=== PATIENT | female | born 1965 | race Caucasian/White ===

== ENCOUNTER 2018-08-14 09:48 | Observation (INO) | payer BC, MEDICARE ==
[2018-08-14 11:20] LABS: #Basophils 0.1 thou/uL (0.0-0.2); #Eosinphils 0.2 thou/uL (0.0-0.7); #Lymphocytes 2.1 thou/uL (1.20-3.40); #Monocytes 0.4 thou/uL (0.11-0.59); #Neutrophils 3.5 thou/uL (1.40-6.50); %Eosinophils 2.4 % (0.0-10.0); %Lymphocytes 33.2 % (21.0-51.0); %Neutrophils 56.3 % (42.0-75.0); Hemoglobin 13.4 g/dL (12.0-16.0); Mean Corpuscular HGB CONC 31.9 g/dL (32.0-36.0); Mean Corpuscular Hemoglobin 28.2 pg (27.0-31.0); Mean Corpuscular Volume 88.3 fL (78.0-98.0); Mean Platelet Volume 9.1 fL (7.4-10.4); Platelet Count 212 thou/uL (130-400); Red Blood Cell (RBC) Count 4.75 mill/uL (4.20-5.40); White Blood Cell (WBC) Count 6.3 thou/uL (4.8-10.8)
[2018-08-14 11:41] LABS: ALT (SGPT) 27 U/L (8-55); AST (SGOT) 22 U/L (5-34); Albumin 4.3 g/dL (3.5-5.0); Alkaline Phosphatase 94 U/L (40-150); Anion Gap 10 mmol/L (10-20); BUN (Urea Nitrogen) 15 mg/dL (9.8-20.1); Bilirubin, Total 0.3 mg/dL (0.2-1.2); Calc. Creatinine Clearance 0 mL/min (70-130); Calcium 9.5 mg/dL (7.8-10.44); Carbon Dioxide 31 mmol/L (22-29); Chloride 105 mmol/L (98-107); Estimated GFR-MDRD 57; Globulin 3.4 g/dL (2.4-3.5); Glucose 94 mg/dL (70-105); Lipase 43 U/L (8-78); Potassium 3.8 mmol/L (3.5-5.1); Protein, Total 7.7 g/dL (6.0-8.3); Sodium 142 mmol/L (136-145)
[2018-08-14 11:56] LABS: Bilirubin Negative (Negative); Blood, Urine Negative (Negative); Clarity CLEAR (Clear); Glucose, Urine (Dipstick) Negative (Negative); Leukocyte Negative (Negative); Nitrite Negative (Negative); Protein, Urine (Dipstick) Negative (Neg-Trace); Specific Gravity, Urine 1.005 (1.002-1.036); Urobilinogen 0.2 mg/dL (0.2-1.0)
[2018-08-14] MEDS ORDERED: Dicyclomine 20 MG TAB ONE (12:09)
[2018-08-14] MEDS ORDERED: Metoclopramide HCl 10 MG/2 ML VIAL ONE (12:10)
[2018-08-14] MEDS ORDERED: Ketorolac Tromethamine 30 MG/ML VIAL ONE (12:10)
[2018-08-14] MEDS ORDERED: diphenhydrAMINE 50 MG/ML VIAL ONE (12:10)
--- NOTE | 2018-08-14 13:09 | CT ---
CT ABDOMEN AND PELVIS WITHOUT CONTRAST STONE PROTOCOL: HISTORY: Flank pain. COMPARISON: None. FINDINGS: There is incomplete evaluation of a catheter with the tip in the atriocaval junction. No pericardial effusion. The lung bases are clear. Prior gastric surgery. Prior cholecystectomy. A shunt catheter projects over the hemiabdomen with i nsertion into the abdomen at the left lower quadrant without kinking or coiling. No significant free fluid within the abdomen or pelvis. No dilated loops of large or small bowel. N o hydroureteronephrosis or nephroureterolithiasis. No secondary evidence of a recently passed stone. No retroperitoneal adenopathy. Noncontrast evaluation of the liver, spleen, and pancreas is unremarkable. The aortoiliac contour is nonaneurysmal. There is advanced facet arthropathy on the right, at L4-L5 and at L5-S1. IMPRESSION: 1. No acute inflammatory process in the abdomen or pelvis. 2. No nephroureterolithiasis or hydroureteronephrosis. 3. No secondary evidence of a recently passed stone. POS: [facility]
[2018-08-14] MEDS ORDERED: methylPREDNISolone Sod Succ/PF 125 MG/2 ML VIAL ONE (13:58)
[2018-08-14] MEDS ORDERED: Magnesium 2 GM/50 ML BAG (IN WATER) ONE (13:58)
--- NOTE | 2018-08-14 14:07 | CT ---
CT BRAIN WITHOUT CONTRAST: HISTORY: Headache. History of shunt. COMPARISON: None. FINDINGS: The ventricular and cisternal system shows small ventricles with a ventriculoperitoneal shunt tube in place. The tube enters the right frontal region and crosses to the left of midline, at the level of the left foramen of Monro. There are no signs of hemorrhage or mass effect. IMPRESSION: 1. No acute intracranial abnormalities. 2. The ventriculoperitoneal shunt tube is seen. The ventricles are very decompressed. POS: [facility]
[2018-08-14] MEDS ORDERED: Valproate Sodium 500 MG in Sodium Chloride 0.9% 100 ML IVPB SCH (16:00)
[2018-08-14] MEDS ORDERED: Sodium Chloride 0.9% 1,000 ML IV SCH (19:01)
[2018-08-14] MEDS ORDERED: Ondansetron PF 4 MG/2 ML Vial IVP PRN ×2 (19:01→19:10)
[2018-08-14] MEDS ORDERED: Ondansetron ODT 4 MG TAB SL PRN (19:01)
[2018-08-14] MEDS ORDERED: Zolpidem Tartrate 5 MG TAB PO PRN (19:10)
[2018-08-14] MEDS ORDERED: Acetaminophen 325 MG TAB PO PRN (19:10)
[2018-08-14] MEDS ORDERED: Guaifenesin DM 100-10/5 ML UDCUP PO PRN (19:10)
[2018-08-14] MEDS ORDERED: Senokot S 8.6-50 MG TAB PO PRN (19:10)
[2018-08-14] MEDS ORDERED: Acetaminophen 650 MG Suppository PR PRN (19:10)
[2018-08-14] MEDS ORDERED: Ondansetron ODT 4 MG TAB PO PRN (19:10)
[2018-08-14] MEDS: Sodium Chloride 0.9% 1,000 ML IV SCH (20:17)
[2018-08-14] MEDS: Metoclopramide HCl 10 MG/2 ML VIAL IVP SCH (20:21)
[2018-08-14] MEDS: SODIUM CHLORIDE 0.9% FS SCH (20:28)
[2018-08-14] MEDS: DIHYDROERGOTAMINE MESYLATE FS SCH (20:28)
[2018-08-14 20:32] VITALS: BMI 48.9
[2018-08-14] MEDS ORDERED: Famotidine 20 MG TAB PO SCH (21:00)
[2018-08-14] MEDS ORDERED: traZODone HCl 50 MG TAB PO SCH (23:00)
[2018-08-14] MEDS ORDERED: Lorazepam 0.5 MG TAB PO PRN (23:26)
--- NOTE | 2018-08-15 01:42 | HP ---
PRIMARY CARE PHYSICIAN: Out of town. CHIEF COMPLAINT: Migraine. HISTORY OF PRESENT ILLNESS: This is a 52-year-old female with a history of chronic migraines, also with a previous history of kidney stones. She came in initially complaining of some right flank and right lower pelvic pain, coming and going, but stated that has actually been going on for several months and does not bother her that bad. She had been having a migraine that was very severe. She reported that some migraine has been going on since of last week, about six days ago. The patient reports that it is a typical migraine for her. It is a right-sided pounding pain, associated with some doubling of her vision initially during the migraine onset, also associated with nausea, but no vomiting. She has taken her Imitrex, Relpax, and other home medications without any resolution. The patient has a very extensive history of chronic migraines. They used to be much worse than they are. She has had a ventricular peritoneal shunt put in for this in the past. She has had a port placed years ago because they were having trouble getting IV access and she has had I believe several neurostimulator implants. She had one done in dialysis about 2-3 years ago at which time her migraines improved markedly. She has them about once a week now and they are self-limited resolve usually with her triptans and has not had been hospitalized for them for some time. The patient typically lives in [place], that is where her doctor and neurologist are. 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 The patient denies fever or other systemic symptoms. No dysuria or hematuria. The patient did have a CT of the brain in the emergency room that was negative. Also had a CT of the abdomen and pelvis, stone protocol, which showed no renal stones and no evidence of obstructive uropathy either. The patient was given metoclopramide 10, Toradol 30, diphenhydramine 25, a liter of fluid, followed later by Bentyl 20 mg orally, then methylprednisolone 125 mg, magnesium sulfate 2 g, and then finally valproic acid 500 mg IV without any improvement in her pain, so she is being put in observation in the hospital for intractable status migrainosus. PAST MEDICAL HISTORY: 1. Chronic migraines, see HPI. 2. Kidney stones. 3. 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 4. Previous hypercholesterolemia, now resolved off medicines. PAST SURGICAL HISTORY: 1. Tubal ligation. 2. Hysterectomy. 3. . 4. Bunion surgery x3. 5. Port placement. 6. Ankle repair. 7. Gastric bypass surgery. 8. Appendectomy. 9. Cholecystectomy. 10. TOOL DRESSER shunt placement. 11. Neurostimulator implants x4. 12. Breast biopsies. SOCIAL HISTORY: No tobacco, alcohol, or illicit drug use. She is , living with her . FAMILY HISTORY: Father with migraines and bilateral trigeminal neuralgia with chronic pain. ALLERGIES: KEFLEX LED TO A C DIFFICILE INFECTION IN THE PAST, BUT NO TRUE DRUG ALLERGIES. CURRENT MEDICATIONS: The patient has a list of the names of her medicines, but does not know the dosages. 1. Bumex. 2. Imitrex. 3. Maxalt. 4. CoQ10. 5. Protonix. 6. Tramadol. 7. Lorazepam. 8. Aripiprazole. 9. Trazodone. 10. Mirtazapine. 11. Remeron. 12. Lunesta. 13. Vitamin D. 14. Stool softener. 15. Aleve. 16. Ibuprofen. 17. Stelara. 18. Emgality. 19. Gets Botox injections at her neurologist's office. REVIEW OF SYSTEMS: CONSTITUTIONAL: No fevers or chills. EYES: See HPI. No current blurred vision or double vision. ENT: No congestion, drainage, or sore throat. CARDIOVASCULAR: The patient gets intermittent chest pains for which she has worked up before and they determined it was most likely anxiety. She has never had any diagnosis of coronary artery disease. She does not have any active chest pain right now, just gets this intermittently as a chronic problem. PULMONARY: No coughing, wheezing, or shortness of breath. GASTROINTESTINAL: Nausea. No vomiting. She had some abdominal pain, some in her right flank, some suprapubically, a little bit over to the right side. The pain has been coming and going for 3-4 months. It is a stabbing/pressure pain. She thought it was maybe a kidney stone that she was never able to pass. States she has had this before, has not worsened. Currently, has eased off in the emergency room, is not bothering her right now. No diarrhea or constipation. GENITOURINARY: No dysuria or hematuria. MUSCULOSKELETAL: No muscle aches or joint pains. No back pain SKIN: No new rashes or other lesions noted. She does have a little bit of eczema on bilateral sides of her feet. NEUROLOGIC: See HPI. No numbness, tingling, or focal weakness. PHYSICAL EXAMINATION: VITAL SIGNS: Blood pressure 104/66, pulse 61, respirations 18, O2 saturation 95 % on room air, temperature 98.1. Pain 9/10. GENERAL: This is a well-developed obese white female who appears in some pain from her headache, but otherwise not in distress. HEENT: Pupils are equal, round, and reactive to light. Oropharynx is clear without lesions, erythema, or exudate. NECK: Supple. No lymphadenopathy. No thyroid nodules or enlargement. No JVD. HEART: Regular rate and rhythm. No murmurs, rubs, or gallops. LUNGS: Clear to auscultation bilaterally. No wheezes, crackles, or rhonchi. ABDOMEN: Soft, nontender to palpation. Normoactive bowel sounds. No hepatosplenomegaly or other masses. EXTREMITIES: No clubbing, cyanosis, or edema. SKIN: No rashes or lesions noted. NEUROLOGIC: The patient's cranial nerves 2 through 12 are intact and equal bilaterally. No facial droop. Clear speech. Deep tendon reflexes are 2+ in all extremities. Strength is 5/5 in all 4 extremities with normal coordination. Sensation is normal in all extremities. PSYCHIATRIC: Alert and oriented x3. Normal mood and affect. LABORATORY DATA: CBC within normal limits. Complete metabolic panel within normal limits and urinalysis is negative for infection or blood. CT of brain, abdomen and pelvis as above. ASSESSMENT AND PLAN: 1. Status migrainosus with a migraine present for the last six days without improvement. I did call Dr. Rosario and discussed the patient's case with him. She has years ago been successfully treated with DHE, however, she said she has a reaction if it is given as an injection. She will have severe high blood pressure, but does well with an infusion. As a result, Dr. Rosario recommended doing the DHE 0.5 mg in saline over an hour infusion after a dose of Reglan. I did talk to the Pharmacy and we will do 10 mg of Reglan, slow push over 1 minute, followed by the DHE 0.5 mg in 50 mL of normal saline infused over 1 hour. This will be done every 6 hours until resolution of her migraine. Dr. Rosario has agreed to consult, will see the patient tomorrow. 2. Nausea and vomiting. We will continue patient's Zofran as needed. For now, we will give normal saline 100 mL/h until she is taking good p.o. She apparently has been able to drink at home, though does not look dehydrated. 3. Gastrointestinal prophylaxis. We will resume patient's Protonix. 4. Insomnia, I do not think we have Lunesta here, so we will give her Ambien as needed at night. 5. Deep venous thrombosis prophylaxis. We will put the patient on subcu Lovenox and SCDs while in bed. 6. Code status. I did discuss this with the patient. She is a full code. Should she be incapacitated, her will be her medical decision maker, his name is Jeffrey Eatonchance. Job ID: [id number] MTDD
[2018-08-15] MEDS: Metoclopramide HCl 10 MG/2 ML VIAL IVP SCH ×3 (03:00→15:29)
[2018-08-15] MEDS: DIHYDROERGOTAMINE MESYLATE FS SCH ×3 (03:15→15:29)
[2018-08-15] MEDS: SODIUM CHLORIDE 0.9% FS SCH ×3 (03:15→15:29)
[2018-08-15 07:02] LABS: #Basophils 0.1 thou/uL (0.0-0.2); #Eosinphils 0.1 thou/uL (0.0-0.7); #Lymphocytes 2.2 thou/uL (1.20-3.40); #Monocytes 0.5 thou/uL (0.11-0.59); #Neutrophils 4.9 thou/uL (1.40-6.50); %Basophils 0.7 % (0.0-1.0); %Eosinophils 0.9 % (0.0-10.0); %Lymphocytes 28.3 % (21.0-51.0); %Monocytes 5.9 % (0.0-10.0); %Neutrophils 64.3 % (42.0-75.0); Hemoglobin 12.8 g/dL (12.0-16.0); Mean Corpuscular HGB CONC 32.1 g/dL (32.0-36.0); Mean Corpuscular Hemoglobin 28.4 pg (27.0-31.0); Mean Corpuscular Volume 88.6 fL (78.0-98.0); Mean Platelet Volume 9.2 fL (7.4-10.4); Platelet Count 189 thou/uL (130-400); RBC Distribution Width 14.9 % (11.5-14.5); Red Blood Cell (RBC) Count 4.49 mill/uL (4.20-5.40); White Blood Cell (WBC) Count 7.7 thou/uL (4.8-10.8)
[2018-08-15 07:23] LABS: Anion Gap 11 mmol/L (10-20); BUN (Urea Nitrogen) 16 mg/dL (9.8-20.1); Calc. Creatinine Clearance 145 mL/min (70-130); Calcium 8.6 mg/dL (7.8-10.44); Carbon Dioxide 24 mmol/L (22-29); Chloride 110 mmol/L (98-107); Estimated GFR-MDRD 73; Glucose 95 mg/dL (70-105); Potassium 4.3 mmol/L (3.5-5.1); Sodium 141 mmol/L (136-145)
[2018-08-15] MEDS ORDERED: Enoxaparin Sodium 40 MG/0.4 ML SYRINGE SC SCH (09:00)
[2018-08-15] MEDS: Sodium Chloride 0.9% 1,000 ML IV SCH (09:08)
[2018-08-15] MEDS ORDERED: traMADol HCl 50 MG TAB PO PRN (09:29)
--- NOTE | 2018-08-15 09:32 | PDOC.PN ---
- Subjective Encounter Start Date: 08/15/18 Encounter Start Time: 10:20 Subjective: Patient reports marked improvement in migraine. Now 09/25. Nausea -: ok without vomiting. Ate breakfast well. - Objective Resuscitation Status - Order Detail: 08/14/18 18:54 Resuscitation Status Routine Resuscitation Status: FULL: Full Resuscitation Discussed with: Antonio PIPER Reviewed: Yes Vital Signs & Weight: Vital Signs (12 hours) Temp Pulse Resp BP Pulse Ox 08/15/18 07:54 97.9 F 53 L 18 103/58 L 93 L 08/15/18 04:00 97.8 F 61 18 125/83 93 L 08/15/18 00:00 97.9 F 62 18 107/74 94 L Weight Weight 249 lb I&O: 08/14/18 08/15/18 08/16/18 06:59 06:59 06:59 Intake Total 4 Balance 4 Result Diagrams: 08/15/18 06:42 08/15/18 06:42 Phys Exam - Physical Examination Constitutional: NAD HEENT: moist MMs Respiratory: no wheezing, no rales, no rhonchi, clear to auscultation bilateral Cardiovascular: RRR, no significant murmur Gastrointestinal: soft Musculoskeletal: no edema Neurological: non-focal, moves all 4 limbs Psychiatric: normal affect, A&O x 3 Dx/Plan (1) Status migrainosus Code(s): G43.901 - MIGRAINE, UNSP, NOT INTRACTABLE, WITH STATUS MIGRAINOSUS Status: Acute Comment: since 08/08/2018, on DHE and Reglan, Dr. Rosario consulted (2) Nausea and vomiting Code(s): R11.2 - NAUSEA WITH VOMITING, UNSPECIFIED Status: Acute - Plan cont current plan of care, DVT proph w/lovenox, DVT proph w/SCDs Migraine improving, can d/c home once resolved, possibly this evening. * . - Discharge Day Encounter end time: 10:30
[2018-08-15 12:43] VITALS: BP 125/81; TEMP 97.7
[2018-08-15] MEDS ORDERED: Non-Formulary Item 1 EACH (Eszopiclone [Eszopiclone] 1 TAB) PO SCH (21:00)
[2018-08-15] MEDS ORDERED: Docusate 100 MG CAP PO SCH (21:00)
[2018-08-15] MEDS ORDERED: traZODone HCl 50 MG TAB PO SCH (21:00)
--- NOTE | 2018-08-15 23:03 | CON ---
DATE OF CONSULTATION: 08/15/2018 CONSULTING PHYSICIAN: Hospitalist Services. IMPRESSION: Intractable migraine. PLAN: The patient can be discharged home now, that she has improved. HISTORY OF PRESENT ILLNESS: Ms. Wilcox is a 52-year-old white female with a long history of severe migraine. She has been to numerous physicians including the [facility] in [place]. She has undergone multiple medications for preventatives. She is currently on Botox and a neurostimulator. She is averaging about one headache a week. She is down here with her for work and developed a migraine a week ago. She could not break it with her Imitrex or Triptans. She was admitted for treatment. She had a normal CT scan of the brain. She was started on the Noemi protocol. After failing the routine migraine treatment plan, fortunately, she responded and her headache is much better. She feels ready to go home. PAST MEDICAL HISTORY: Hyperlipidemia, cardiac disease. PAST SURGICAL HISTORY: Hysterectomy, cholecystectomy, and kidney stone removal. ALLERGIES: CEPHALEXIN. SOCIAL HISTORY: She is and does not abuse any drugs. MEDICATIONS: Medication list was reviewed. REVIEW OF SYSTEMS: Ten-system review of systems is otherwise negative. PHYSICAL EXAMINATION: GENERAL: Generally, she is a overweight middle-aged woman, lying in bed, in no distress. VITAL SIGNS: Blood pressure 113/71, pulse 51, respirations 16, and temperature 98.1. HEENT: Pupils are equal and reactive. Conjunctivae clear. Oropharynx clear. NECK: Supple. EXTREMITIES: No cyanosis or edema. NEUROLOGIC: She is alert and appropriate. Her speech is fluent and clear. Exam is nonfocal. LABORATORY DATA: Imaging was reviewed. SUMMARY: This is a middle-aged woman with severe migraine, but fortunately, we were able to get her some relief. She seemed stable to be discharged and will follow up with her doctor in [place]. Job ID: [id number]
--- NOTE | 2018-08-16 03:51 | DIS ---
DATE OF ADMISSION: 08/14/2018 DATE OF DISCHARGE: 08/15/2018 PRIMARY CARE PHYSICIAN: Out of town in [place]. REASON FOR ADMISSION: Status migrainosus. DISCHARGE DIAGNOSES: 1. Status migrainosus, resolved. 2. Nausea and vomiting, resolved. 3. Abdominal pain, intermittent, resolved spontaneously. PROCEDURES: 1. CT of the abdomen and pelvis without contrast, stone protocol showing no evidence of kidney stones and no acute inflammatory process in the abdomen or pelvis. No kidney stones. No hydroureteronephrosis. No evidence of a recently passed stone. 2. CT of the brain without contrast showing no evidence of acute intracranial abnormality. There is a ventriculoperitoneal shunt invisible with decompressed ventricles. CONSULTATIONS: Neurology, Dr. Arias. SUMMARY OF HOSPITAL COURSE: This is a 52-year-old white female with a history of severe chronic migraines she has had for decades and she has had significant workup for this in the past as well as procedures done including a ventriculoperitoneal shunt at one point and then neurostimulator implants most recently done in [place] 2 to 3 years ago, backed off her migraines significantly. She only gets about once a week now and they resolve with Imitrex or Maxalt. However, patient came to the hospital at this time after onset of her typical migraine, right-sided pounding, associated with some double vision at first along with nausea, but no vomiting that began 6 days prior to her presentation. It did not resolve with her home medications and so she came to the emergency room. She initially presented with some right flank and pelvic pain on and off for 3 months and was concerned about a recurrent kidney stone. A CT in the ER was negative, and this pain resolved and never came back. However, her migraine was severe and she was seen for this as well. In the ER, she was given metoclopramide, Toradol, Benadryl, Bentyl, methylprednisolone, magnesium sulfate , and valproic acid without any improvement in her pain and so she was admitted for treatment of refractory migraine. I did discuss the case with Dr. Arias and he recommended DHE with Reglan. The patient has had some problems with DHE given as IV push causing some severe hypertension in the past. However, she has tolerated drips, so we did DHE 0.5 mg in 50 mL saline over an hour each time, pretreated with 10 mg of Reglan. She got this q.6 hours overnight. This morning, her pain was much better, 4/10, that was resolved later in the afternoon. Dr. Rosario did see her and she is now being discharged home. DISCHARGE MANAGEMENT: Discharged home. Follow up with Dr. Arias in 2 to 3 weeks or as needed. ACTIVITY: As tolerated. DIET: Regular diet. MEDICATIONS: The patient is to resume all her home medications. 1. Aripiprazole 5 mg daily. 2. Bumex 0.5 mg daily. 3. Colace 100 mg at night. 4. Lorazepam 1 mg 3 times a day as needed for anxiety. 5. Metaxalone 800 mg 3 times a day as needed. 6. Mirtazapine 15 mg daily. 7. Zofran as needed. 8. Protonix 40 mg twice a day. 9. Tramadol 1 tablet 3 times a day as needed for pain. 10. Trazodone 100 mg at night. 11. Eszopiclone 3 mg at night. 12. Maxalt as needed. 13. Sumatriptan subcu as needed. Job ID: [id number] [facility]
[2018-08-16] MEDS ORDERED: Aripiprazole 2 MG TAB PO SCH (09:00)
[2018-08-16] MEDS ORDERED: Bumetanide 1 MG TAB PO SCH (09:00)
[2018-08-16] MEDS ORDERED: Mirtazapine 15 MG TAB PO SCH (09:00)
== END 2018-08-15 18:02 | disposition home or self-care (01) ==
LOC: ERS 09:48 → T4-A 17:34
PROVIDERS: ADMIT Emergency Medicine; ATTEND Emergency Medicine
DX: G43.911 Migraine, unspecified, intractable, with status migrainosus (principal); E66.3 Overweight; Z68.42 Body mass index [BMI] 45.0-49.9, adult; Z79.899 Other long term (current) drug therapy; Z88.1 Allergy status to other antibiotic agents; Z98.2 Presence of cerebrospinal fluid drainage device
CPT/HCPCS: 36415; 70450; 74176; 80048; 80053; 81003; 83690; 85025; 96361; 96365; 96366; 96367; 96372; 96375; 96376; G0378; J1110; J1200; J1642; J1650; J1885; J2765; J2930; J3475; J7050